=== PATIENT | female | born 1950 | race Caucasian/White ===

== ENCOUNTER 2023-10-22 06:41 | Day surgery (SDC) | payer MEDICARE, SELFPAY ==
--- NOTE | 2023-10-21 | HP_ITS ---
Date: 10/21/2023 HISTORY: The patient is a 72-year-old white female with complaints of declining vision out of her right eye. This has been slow in nature over the last year, described as constant and moderate in severity. She states having difficulty while driving at night time because of headlights creating glare and halos. She also has difficulty with road signs at a distance. Finally, she states having difficulty working on the computer and near activities as well. PAST OCULAR HISTORY: Status post cataract extraction with intraocular lens placement for the left eye. PAST MEDICAL HISTORY: Seasonal allergies, general arthritis and hypertension. SOCIAL HISTORY: Denies tobacco, alcohol or recreational drug abuse. SYSTEMIC MEDICATIONS: Include gabapentin, hydrochlorothiazide, calciferol, loratadine, biotin and Nadia D p.r.n. ALLERGIES TO MEDICATIONS: She denies. REVIEW OF SYSTEMS: No pertinent positives. PHYSICAL EXAM: GENERAL: In general, she is awake, alert and oriented x3, well developed, well nourished, in no acute distress. HEART: Regular rate and rhythm. LUNGS: Clear bilaterally. ABDOMEN: Soft, non-tender, non-distended. EXTREMITIES: No pitting edema. OPHTHALMIC EXAM: Revealed a visual acuity of 20/40 in the right and 20/30 in the left that glared to 20/200 bilaterally. Pupils motility, muscle balance and confrontational visual wills within normal limits bilaterally. Pressures are measured at 16 bilaterally. Slit lamp exam revealed blepharitis with a severe decrease in tear film bilaterally. Conjunctiva, cornea, anterior chamber and iris were within normal limits bilaterally. Lens status demonstrated 3+ nuclear sclerosis with vacuoles in the right eye, and a well centered posterior chamber intraocular lens in the left eye. FUNDUS EXAM: Revealed good view with good dilation bilaterally. Optic discs, macula, vessels, periphery and vitreous were within normal limits bilaterally. ASSESSMENT AND PLAN: Visually significant cataract, right eye. After the risks, benefits, and alternatives as well as expectations were delivered to the patient, she elected to go forward with cataract removal. She understands those risks to include but not limited to infection, bleeding, loss of vision or loss of the eye itself. Secondly, she understands that postoperatively she is likely to require spectacle correction for her best visual acuity. Finally, a complete ophthalmic exam was performed and there was not determined to be any other source of vision decline other than that of cataract. After understanding all risks as well as expectations, she elected to go forward with the procedure as listed above and will be doing so in the near future. DEQUAN
--- NOTE | 2023-10-22 | OP_ITS ---
OPERATION DATE: 10/22/2023 SURGEON: Can Sharma M.D. PREOPERATIVE DIAGNOSIS: Nuclear sclerotic cataract right eye. POSTOPERATIVE DIAGNOSIS: Nuclear sclerotic cataract right eye. PROCEDURE NAME: Cataract extraction with intraocular lens placement for the right eye. ANESTHESIA: Topical. ESTIMATED BLOOD LOSS: Zero. COMPLICATIONS: None. PROCEDURE: Patient brought to the operating room in supine position. After proper identification, the right eye was prepped and draped in a sterile ophthalmic fashion. A paracentesis was created at the 11 o'clock position. Approximately 1 mL of unpreserved Xylocaine was injected into the anterior chamber followed by Amvisc Plus. Using a 2.6 mm Keratome blade, a clear corneal incision was created at the 9 o'clock limbus. A cystotome was then used to begin a curvilinear capsulorrhexis that was continued for 360 degrees with the Utrata forceps. BSS on a 26 gauge cannula was injected beneath the anterior capsule to hydrodissect as well as hydrodelineate the lens. After ensuring mobility, phacoemulsification was performed in a [id number]-type fashion. After all nuclear material had been removed from the eye, IA was introduced and all residual cortical material was cleaned up. Additional Amvisc Plus was injected into the posterior bag and a lens model MX60, 21.5 diopters was then injected and dialed into position. After ensuring centration, IA was reintroduced into the anterior chamber and all residual Amvisc Plus was removed from the eye. BSS on a 30 gauge cannula was injected into the stroma of both the clear corneal incision as well as the paracentesis to hydrate the wounds. Additional BSS was injected into the anterior chamber to pressurize the eye at approximately 20 to 22 mmHg by finger tension. 0.1 mL of antibiotic was used to wash out the anterior chamber maintaining the pressures above. Weck-Izzy sponges were used to check the wounds to be watertight. One drop of Apraclonidine and one drop of prednisolone acetate were placed into the eye and a shield was placed over top. The patient was then sent to the postoperative area in satisfactory condition to follow up the following day for postoperative care. DEQUAN
[2023-10-22 06:59] VITALS: BP 127/67; PULSE 62; RESP 16; TEMP 36.2; O2SAT 96
[2023-10-22] MEDS: TROPICAMIDE 1% OP SOL 300 DROP/15 ML BOTTLE OP ×4 (07:15→07:50)
[2023-10-22] MEDS: CYCLOPENTOLATE HCL 1% OP SOL 40 DROP/2 ML BOTTLE OP ×4 (07:16→07:51)
[2023-10-22] MEDS: PHENYLEPHRINE HCL 2.5% OP SOL 40 DROP/2 ML BOTTLE OP ×4 (07:16→07:51)
[2023-10-22] MEDS: BESIFLOXACIN HCL 100 DROP DROPS.SUSP OP ×4 (07:16→07:52)
[2023-10-22] MEDS: DIAZEPAM 5 MG TABLET PO (07:23)
[2023-10-22 08:12] VITALS: BP 132/72; PULSE 57; RESP 18; O2SAT 98
[2023-10-22] MEDS: HYALURONATE SODIUM 16 MG/ML SYRINGE EYE-RIGHT (08:14)
[2023-10-22] MEDS: APRACLONIDINE HCL 100 DROP/5 ML BOTTLE OP (08:14)
[2023-10-22] MEDS: PREDNISOLONE ACETATE OP 1% SUSP 100 DROPS/5 ML 1 DROP OP (08:15)
[2023-10-22] MEDS: LIDOCAINE 2% JELLY 10 ML UR (08:15)
[2023-10-22] MEDS: BETADINE POVIDONE-IODINE 5% OP SOL 30 ML BOTTLE OP (08:15)
[2023-10-22] MEDS: PROPARACAINE HCL 0.5% 300 DROP/15 ML BOTTLE OP (08:16)
[2023-10-22] MEDS: TETRACAINE HCL 0.5% OP SOL 80 DROP/4 ML BOTTLE OP (08:16)
[2023-10-22] MEDS: CEFUROXIME SODIUM 750 MG, 0.9 % SODIUM CHLORIDE 16.3 ML OP (08:17)
[2023-10-22] MEDS: PHENYLEPHRINE/KETOROLAC 1-0.3% ML VIAL 4 ML IRR (08:17)
[2023-10-22] MEDS: LIDOCAINE HCL 1% PF 20 MG/2 ML VIAL 1 ML INJ (08:20)
[2023-10-22 08:24] VITALS: BP 133/77; PULSE 55; RESP 18; O2SAT 100
--- OUTSIDE RECORDS SUMMARY | 2023-11-04 02:20 | XMS_ITS | CCD ---
Author Name Unknown Address [address] [place] [address] Organization [facility] Care Team Providers Care 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 Name Role Phone Lily Denton Primary Care Provider SELF REFERRAL, MAMMOGRAPHY Referring Unava ilLILY Briceno Primary Care Unavailable ABDIRIZAK COLLADO Attending Unavailable ABDIRIZAK COLLADO Attending Unavailable DANNY YIP Referring Unavailable Ickes PA-C, Radha Palencia Attending Unav ailable Columbae VEL, Lily Mena Primary Care Unavailable Bertin CROWDER, Lily Mena Primary Care Unavailable Lily Denton CNP Referring Unavailable Ickes PA-C, Radha Palencia Attending Unav ailable Ickes PA-C, Radha Palencia Attending Unav ailable Rine FINANCIAL ASSISTANT, Lily Mena Primary Care Unavailable Allergies Allergy Classification Reported Allergen(s) Allergy Type Date of Onset Reaction(s) Facility (1 source) No Known Medication Allergies; Translations: [No Known Medication Allergies] Propensity to adverse reactions to drug (disorder) [facility] Repository Medications Current Medications Medication Drug Class(es) Dates Sig (Normalized) Sig (Original) alendronic acid 70 mg oral tablet (4 sources) Bisphosphonate alendronate (FOS AMAX) 70 MG tablet Take 70 mg by mouth every 7 days 0 Active calcium chloride 0.0014 meq/ml / potassium chloride 0.004 meq/ml / sodium chloride 0.103 meq/ml / sodium lactate 0.028 meq/ml injectable solution (1 source) Start: 09-30-20 19 lactated ringers infusion cholecalciferol 0.05 mg oral tablet (4 sources) Vitamin D take 1 tablet by mouth once daily Cholecalciferol (VITAMIN D3) 50 MCG (1999 UT) TABS Take 1 tablet by mouth daily 0 Active hydroCHLOROthiazide 12.5 mg oral capsule (4 sources) Thiazide Diuretic take 1 capsule by mouth once daily hydrochlorothiazide (MICROZIDE) 12.5 MG capsule Take 12.5 mg by mouth daily 0 Active Problems Problem Classification Problem Date Documented Date Episodic/Chronic Other screening for suspected conditions (not mental disorders or infectious disease) (5 sources) Patient encounter status; Translations: [Encounter for screening mammogram for malignant neoplasm of breast] Onset: 09-30-2019 Resolved: 10-30-2019 Episodic Residual codes; unclassified (1 source) Postmenopausal state; Translations: [Asymptomatic age-related postmenopausal state] Episodic Unclassified (4 sources) Patient encounter status; Translations: [Breast cancer screening by mammogram] Onset: 09-30-2019 Resolved: 10-30-2019 09-30-2019 Results Test Name Value Interpretation Reference Range Facil ity MRI Spine Lumbar w/o Contras ton 10-27-2023 MRI Spine Lumbar w/o Contrast EXAM: MRI Spine Lumbar w/o Contrast HISTORY: Other (please specify), Low back pain, symptoms persist with > 6wks conservative treatment COMPARISON: None. TECHNIQUE: MRI images obtained with multiple sequences. MRI of the lumbar spine without contrast. FINDINGS: The conus ends at T12-L1. No abnormal signal to terminal spinal cord. T11-T12: Intervertebral disc degeneration. No spinal canal stenosis. No neural foraminal stenosis. Mild posterior disc protrusion. T12-L1: Mild disc degeneration. Mild broad-based posterior disc bulge. No spinal canal stenosis or neural foraminal stenosis. L1-L2: Intervertebral moderate disc degeneration. Broad-based posterior disc bulge. No spinal canal stenosis. Moderate left neural foraminal narrowing. Right neural foramen is open. Mild facet joint arthropathy. Degenerative endplate edema. L2-L3: Intervertebral disc degeneration. Broad-based posterior disc bulge. No spinal canal stenosis. Left moderate neural foraminal narrowing. Right neural foramen is open. Mild facet joint arthropathy. Mild left lateral recess narrowing. L3-L4: Intervertebral disc degeneration. Broad-based posterior disc bulge. No spinal canal stenosis. Bilateral neural foramina are patent. Moderate bilateral facet joint arthropathy. L4-L5: Intervertebral moderate disc degeneration. Mild anterolisthesis of L4 on L5 measuring 0.3 cm. No spinal canal stenosis. No neural foraminal stenosis. Facet joints are moderately degenerated. Degenerative endplate edema. L5-S1: Intervertebral mild disc degeneration. Central posterior disc protrusion. No spinal canal stenosis. Bilateral neural foramina are patent. Mild facet joint arthropathy. Mild posterior pelvic ascites. 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 IMPRESSION: 1. No significant spinal canal stenosis. 2. Moderate neural foraminal narrowing at left L1-L2 and left L2-L3. 3. Mild anterolisthesis of L4 on L5 measuring 0.3 cm from facet joint arthropathy. 4. Other findings as described. Final Dictated by: Luke Naranjo MD Dictated DT/TM: 10/26/2023 11:17 pm Signed by: Luke Naranjo MD Signed (Electronic Signature): 10/26/2023 11:21 pm (If Report Is Signed, Electronically Signed in Other Vendor System) [facility] Neurosurgery Office/Clinic N anjelica 10-01-2023 Neurosurgery Office/Clinic Note Chief Complaint Back Consult History of Present Illness Patient is a pleasant 72-year-old female with a history of hypertension, hyperlipidemia, vitamin D deficiency, and osteopenia (DEXA 02/2022 T score -1.7), who presents to the outpatient neurosurgical clinic today accompanied by her , as a new patient, at the request of her treating primary care provider, Maria E Denton CNP, for consultation on behalf of complaints of chronic low back pain with radicular symptoms involving the right greater than left lower extremity. Patient reports she has struggled with components of axial lumbar pain for most of her adult life. She states symptoms have become increasingly problematic such that they have been most severe in the past 1 to 2 years. Patient currently describes midline and bilateral lumbosacral pain with radiation into the right greater than left gluteal region and right greater than left lower extremity in somewhat of an L5 distribution. She states symptoms are predictably aggravated with standing/walking. She reports intermittent associated numbness/paresthesias throughout the right greater than left lower extremity in the same distribution as her pain. Patient denies motor weakness in the lower extremities, bowel/bladder incontinence, or saddle paresthesias. She denies cervical or thoracic pain. She denies radicular pain or numbness/paresthesias into the upper extremities or chest wall/thorax. Patient denies motor weakness of the upper extremities, decreased dexterity, or chronic gait imbalance. Patient currently rates symptoms at 6-7/10 on a standard pain scale. She estimates that 50% of her pain is attributable to axial lumbar pain with remaining 50% being attributable to lower extremity symptoms. Patient states symptoms interrupt sleep and activity level/function. She states she is not forced to place her lower extremities in a dependent position to improve symptoms. She states that her ability to ambulate is not currently significantly limited. Patient reports she does lean on a grocery cart when shopping. Thus far, patient symptoms have been refractory to oral medication management including gabapentin. She has also participated in animal care taker. Patient denies physical therapy or injection modalities through pain management. PAST MEDICAL HISTORY: Hypertension Hyperlipidemia Osteopenia Vitamin D deficiency Seasonal allergic rhinitis PAST SURGICAL HISTORY: Right breast lumpectomy ORIF ankle ALLERGIES: No known drug allergies MEDICATIONS: See medication list SOCIAL HISTORY: Patient is . She has 2 grown children. She lives independently in [place]. Patient denies nicotine, alcohol, or recreational drugs. 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 She states no Drew of Workmen's Compensation or third-republican insurance claims based on today's office visit. FAMILY HISTORY: CAD: Maternal grandfather Cancer: Maternal grandmother with breast cancer Review of Systems Constitutional: [No fevers, chills, sweats] Eye: [No recent visual problems] ENT: [No ear pain, sore throat, nasal congestion] Respiratory: [No shortness of breath, cough] Vascular: [No edema, erythema, discoloration] Cardiovascular: [No Chest pain, palpitations, syncope] Neuro: [No headaches, dizziness] Gastrointestinal: [No nausea, vomiting, diarrhea] Genitourinary: [No hematuria] Endocrine: [no polydipsia, polyphagia] Hematology: [no easy bruising, no bleeding tendencies] Physical Exam Vitals & Measurements HR: 68 (Peripheral) BP: 126/72 SpO2: 95 HT: 167.5 cm WT: 95.6 kg WT: 95.6 kg (Dosing) BMI: 34.07 Additional Vitals BP Position/Location: Sitting, Right arm GENERAL PHYSICAL EXAM: GENERAL: well developed, well nourished, no distress HEAD: normocephalic, atraumatic EYES: anicteric, atraumatic MUCOUS MEMBRANES: Moist, no evidence of dehydration NECK: supple, full range of motion, no deformity noted; no cervical adenopathy; no carotid bruits; no tracheal deviation; no winging of the scapula; no drooping of the shoulder; no evidence of neurotension signs such as Lhermitte's or Spurling sign CHEST: clear CARDIAC: normal heart sounds no murmurs or extra sounds SHOULDER: Full range of motion on active and passive evaluation; no evidence of impingement or rotator cuff tendinopathy, negative empty can testing. PERIPHERAL NERVES: no tinel's signs carpal, cubital, or peroneal, no digital compression provocation SPINE: no evidence of scoliosis, rib hump, deformities or step-offs. No trigger points or myospasm VASCULAR: strong pulses with rapid capillary refill, no evidence of Raynaud's phenomenon, autonomic disturbance, venous insufficiency, or thoracic outlet syndrome. HIP: no Fabere's or Austin's sign LUMBAR: range of motion normal; no evidence of neurotension signs such as straight leg raise or reverse straight leg raise or femoral stretch test. PAIN BEHAVIOR: No evidence of Kristel's findings or overt pain behavior. NEUR (more content not included)... Normal [facility] Provider Letteron 10-01-2023 Provider Letter (Inserted Image. Ketty ble to display) Lily Denton CNP [address] [place] [id number] Re: Johnna Ba Date of Visit: 10/01/2023 Dear Lily Denton, Thank you for allowing me to contribute to the care of your patient, Johnna Ba. Attached is my office note and you will find my assessment and recommendations from our encounter today. Please do not hesitate to contact me with any questions or concerns. Sincerely, Radha Malagon PA-C [facility] [address] [address] The following document(s) were included in the letter: October 01, 2023 12:49:07 EST - (10/01/2023) Neurosurgery Office Visit Note Normal [facility] ALANNAH KIRILL DIGITAL SCREEN SELF REFERRAL W OR WO CAD BILATERALon 03-27-2023 ALANNAH KIRILL DIGITAL SCREEN SELF REFERRAL W OR WO CAD BILATERAL EXAMINATION: SCREENING DIGITAL BILATERAL MAMMOGRAM WITH TOMOSYNTHESIS, 03/27/2023 TECHNIQUE: Screening mammography of the bilateral breasts was performed with tomosynthesis. 2D standard and 3D tomosynthesis combination imaging performed through both breasts in the MLO and CC projection. Computer aided detection was utilized in the interpretation of this exam. COMPARISON: February 18, 2022 and October 26, 2020 HISTORY: Screening. FINDINGS: Breasts are composed of scattered fibroglandular density. There is no dominant mass, architectural distortion or concerning grouping of microcalcification in either breast. IMPRESSION: No mammographic evidence of malignancy BIRADS: BIRADS - CATEGORY 1 Negative. Normal interval follow-up is recommended in 12 months. OVERALL ASSESSMENT - NEGATIVE A letter of notification will be sent to the patient regarding the results. The [employer] recommends annual mammograms for women 40 years and older. Interpreted by: Kannan Iyer DO Signed by: Kannan Iyer DO 03/27/23 Final result Normal [facility] No mammographic evid ence of malignancy BIRADS: BIRADS - CATEGORY 1 Negative. Normal interval follow-up is recommended in 12 months. OVERALL ASSESSMENT - NEGATIVE A letter of notification will be sent to the patient regarding the results. [employer] recommends annual mammograms for women 40 years and older. [facility] RIS CONSOLIDATE D EXAMINATION: SCREENING DIGITAL BILATERAL MAMMOGRAM WITH TOMOSYNTHESIS, 03/27/2023 TECHNIQUE: Screening mammography of the bilateral breasts was performed with tomosynthesis. 2D standard and 3D tomosynthesis combination imaging performed through both breasts in the MLO and CC projection. Computer aided detection was utilized in the interpretation of this exam. COMPARISON: February 18, 2022 and October 26, 2020 HISTORY: Screening. FINDINGS: Breasts are composed of scattered fibroglandular density. There is no dominant mass, architectural distortion or concerning grouping of microcalcification in either breast. [facility] RIS CONSOLIDATE D Radiology Study observation (narrative) [facility] [email or web address] Work Phone: [facility] KIRILL DIGITAL SCREEN SELF REFERRAL W OR WO CAD BILATERALOrdered By: Kannan Iyer on 03-27-[address] [facility] [email or web address] Work Phone: [facility] KIRILL DIGITAL SCREEN BILA TERALon 02-18-2022 No mammographic evid ence of malignancy BIRADS: BIRADS - CATEGORY 1 Negative. Normal interval follow-up is recommended in 12 months. OVERALL ASSESSMENT - NEGATIVE A letter of notification will be sent to the patient regarding the results. [employer] recommends annual mammograms for women 40 years and older. [facility] RIS CONSOLIDATE D EXAMINATION: SCREENING DIGITAL BILATERAL MAMMOGRAM WITH TOMOSYNTHESIS, 02/18/2022 TECHNIQUE: Screening mammography was performed with tomosynthesis including MLO and CC views of the bilateral breasts. Computer aided detection was used for the interpretation of this exam. COMPARISON: October 26, 2020 and August 17, 2019 HISTORY: Screening. FINDINGS: Breasts are composed of scattered fibroglandular density. There is no dominant mass, architectural distortion or concerning grouping of microcalcification in either breast. [facility] CONSOLIDATE D Radiology Study observation (narrative) Carolyn [facility] Work Phone: [employer] SCREEN BILA TERALOrdered By: Kannan Iyer on 02-18-2022 [employer] Work Phone: [facility] SCREEN SELF REFERRAL W OR WO CAD BILATERALon 10-26-2020 No mammographic evid ence of malignancy. BI-RADS 1 BIRADS: BIRADS - CATEGORY 1 Negative, no evidence of malignancy. Normal interval follow-up is recommended in 12 months. OVERALL ASSESSMENT - NEGATIVE A letter of notification will be sent to the patient regarding the results. [employer] recommends annual mammograms for women 40 years and older. VIK[facility] Mittal EXAMINATION: SCREENI NG DIGITAL BILATERAL MAMMOGRAM WITH TOMOSYNTHESIS, 10/26/2020 TECHNIQUE: Screening mammography of the bilateral breasts was performed with tomosynthesis. 2D standard and 3D tomosynthesis combination imaging performed through both breasts in the MLO and CC projection. Computer aided detection was utilized in the interpretation of this exam. COMPARISON: 08/17/2019, 08/14/2018 HISTORY: Screening. FINDINGS: The breast tissue is composed of scattered fibroglandular tissue. There is no suspicious mass, suspicious microcalcification, or area of architectural distortion. Carolyn Isabel h- VIKTOR TERRY Kevin, [facility] Incoming R adiant Results From [employer] - 10/26/2020 1:04 PM EST EXAMINATION: SCREENING DIGITAL BILATERAL MAMMOGRAM WITH TOMOSYNTHESIS, 10/26/2020 TECHNIQUE: Screening mammography of the bilateral breasts was performed with tomosynthesis. 2D standard and 3D tomosynthesis combination imaging performed through both breasts in the MLO and CC projection. Computer aided detection was utilized in the interpretation of this exam. COMPARISON: 08/17/2019, 08/14/2018 HISTORY: Screening. FINDINGS: The breast tissue is composed of scattered fibroglandular tissue. There is no suspicious mass, suspicious microcalcification, or area of architectural distortion. IMPRESSION: No mammographic evidence of malignancy. BI-RADS 1 BIRADS: BIRADS - CATEGORY 1 Negative, no evidence of malignancy. Normal interval follow-up is recommended in 12 months. OVERALL ASSESSMENT - NEGATIVE A letter of notification will be sent to the patient regarding the results. [employer] recommends annual mammograms for women 40 years and older. [employer] [place] Colonoscopyon 09-30-2019 No dictation [facility] [employer] [place] DEXA BONE DENSITY AXIAL SKEL ETONon 08-17-2019 Osteopenia by WHO criteria. [employer] [place], [place] EXAMINATION: BONE DE NSITOMETRY 08/17/2019 10:41 am TECHNIQUE: A bone density dual x-ray absorptiometry (DEXA) scan was performed of the lumbar spine and left hip on a [employer] system. COMPARISON: 08/24/2013. HISTORY: ORDERING SYSTEM PROVIDED HISTORY: Asymptomatic age-related postmenopausal state FINDINGS: LUMBAR SPINE: The bone mineral density in the lumbar spine including the L1-L4 levels is measured at 1.201 g/cm2, which corresponds to a T-score of 0.2 and a Z-score of 0.8. This is within the normal range by WHO criteria. This indicates 5.2% increase from the previous study. On the previous study the L1-L4 BMD value was: 1.142 g/cm2 and the total T-score was: -0.3. LEFT HIP: The bone mineral density in the total hip is measured at 0.892 g/cm2 corresponding to a T-score of -0.9 and a Z-score of -0.2. This is within the normal range by WHO criteria. This indicates 4.7% decrease from the previous study. On the previous study the total BMD value was: 0.936 g/cm2 and the total T-score was: -0.6. The bone mineral density of the femoral neck is measured at 0.804 g/cm2 corresponding to a T-score of -1.7 and a Z-score of -0.6. This is within the osteopenia range by WHO criteria. FRAX 10 year probability of fracture: - major osteoporotic fracture: 9.7% - hip fracture: 1.5% [employer]- [place], [employer]KTOR Kevin, [facility] Incoming R adiant Results From [employer] - 08/17/2019 10:50 AM EDT EXAMINATION: BONE DENSITOMETRY 08/17/2019 10:41 am TECHNIQUE: A bone density dual x-ray absorptiometry (DEXA) scan was performed of the lumbar spine and left hip on a [employer] system. COMPARISON: 08/24/2013. HISTORY: ORDERING SYSTEM PROVIDED HISTORY: Asymptomatic age-related postmenopausal state FINDINGS: LUMBAR SPINE: The bone mineral density in the lumbar spine including the L1-L4 levels is measured at 1.201 g/cm2, which corresponds to a T-score of 0.2 and a Z-score of 0.8. This is within the normal range by WHO criteria. This indicates 5.2% increase from the previous study. On the previous study the L1-L4 BMD value was: 1.142 g/cm2 and the total T-score was: -0.3. LEFT HIP: The bone mineral density in the total hip is measured at 0.892 g/cm2 corresponding to a T-score of -0.9 and a Z-score of -0.2. This is within the normal range by WHO criteria. This indicates 4.7% decrease from the previous study. On the previous study the total BMD value was: 0.936 g/cm2 and the total T-score was: -0.6. The bone mineral density of the femoral neck is measured at 0.804 g/cm2 corresponding to a T-score of -1.7 and a Z-score of -0.6. This is within the osteopenia range by WHO criteria. FRAX 10 year probability of fracture: - major osteoporotic fracture: 9.7% - hip fracture: 1.5% IMPRESSION: Osteopenia by WHO criteria. [facility] ALANNAH DIGITAL SCREEN W OR WO C AD BILATERALon 08-17-2019 No mammographic evid ence of malignancy. BIRADS: BIRADS - CATEGORY 1 Negative, no evidence of malignancy. Normal interval follow-up is recommended in 12 months. OVERALL ASSESSMENT - NEGATIVE A letter of notification will be sent to the patient regarding the results. The [place] recommends annual mammograms for women 40 years and older. [place], [place] EXAMINATION: BILATER AL DIGITAL SCREENING MAMMOGRAM WITH TOMOSYNTHESIS 08/17/2019 TECHNIQUE: CC and MLO views of the left and right breasts were obtained. Tomosynthesis imaging was performed. Computer aided detection was utilized in the interpretation of this exam. COMPARISON: 08/14/2018, 08/24/2013 HISTORY: Screening. Family history of breast cancer. FINDINGS: There are scattered areas of fibroglandular density. There is no new dominant mass, suspicious microcalcification, or area of architectural distortion. [place], [place] Kevin, [facility] Incoming R adiant Results From [employer] - 08/17/2019 11:17 AM EDT EXAMINATION: BILATERAL DIGITAL SCREENING MAMMOGRAM WITH TOMOSYNTHESIS 08/17/2019 TECHNIQUE: CC and MLO views of the left and right breasts were obtained. Tomosynthesis imaging was performed. Computer aided detection was utilized in the interpretation of this exam. COMPARISON: 08/14/2018, 08/24/2013 HISTORY: Screening. Family history of breast cancer. FINDINGS: There are scattered areas of fibroglandular density. There is no new dominant mass, suspicious microcalcification, or area of architectural distortion. IMPRESSION: No mammographic evidence of malignancy. BIRADS: BIRADS - CATEGORY 1 Negative, no evidence of malignancy. Normal interval follow-up is recommended in 12 months. OVERALL ASSESSMENT - NEGATIVE A letter of notification will be sent to the patient regarding the results. [employer] [place] recommends annual mammograms for women 40 years and older. [place], [place] Vital Signs Date Time Vital Sign Value Performing Clinician Eliu watts 09-30-2019 11:20-0500 Body Temperature 97.59 [degF] [facility] 09-30-2019 11:20-0500 BP Diastolic 70 mm[Hg] [place], [place] 09-30-2019 11:20-0500 BP Systolic 121 mm[Hg] [facility] [place] , [place] 09-30-2019 11:20-0500 Pulse (Heart Rate) 80 /min [facility], [place] 09-30-2019 11:20-0500 Pulse Oximetry 98 % [facility] , [place] 09-30-2019 11:20-0500 Respiratory Rate 18 /min Sarahi Leon [facility], VIKTOR 09-30-2019 08:26-0500 BMI (Body Mass Index) 34.95 kg/m2 Sarahi Leon [facility], [place] 09-30-2019 08:26-0500 Body weight 95.25 kg Sarahi Renae [place], [place] 09-30-2019 08:26-0500 Height 165.1 cm [facility] [place] Encounters Encounter Date Encounter Type Care Provider Facility Start: 10-26-2023 End: 10-27-2023 ambulatory Radha Malagon PA-C Facility:[facility] Start: 10-23-2023 End: 10-23-2023 ambulatory ABDIRIZAK COLLADO Not Available Start: 10-07-2023 End: 10-07-2023 ambulatory ABDIRIZAK COLLADO Not Available Start: 10-01-2023 End: 10-02-2023 ambulatory [facility] Denton CNP [facility] Start: 03-27-2023 End: 03-30-2023 ambulatory MAMMOGRAPHY SELF REFERRAL [facility] Start: 03-27-2023 End: 03-29-2023 Subsequent hospital visit by physician [facility]amm[facility] Mammography Comment on above: Breast cancer screen ing by mammogram Start: 02-18-2022 End: 02-20-2022 Subsequent hospital visit by physician [facility]amm[facility] Mammography Comment on above: Screening mammogram for high-risk patient Start: 10-26-2020 End: 10-28-2020 Subsequent hospital visit by physician [facility] Mammography [facility] At [facility] Mammography Comment on above: Breast cancer screen ing by mammogram Start: 09-30-2019 End: 09-30-2019 Subsequent hospital visit by physician Sarahi Renae Work Phone: [facility] Start: 08-17-2019 End: 08-19-2019 Subsequent hospital visit by physician [facility] [place] Mamm[facility] Comment on above: Breast cancer screen ing by mammogram Asymptomatic age-rel ated postmenopausal state Procedures Date Procedure Procedure Detail Performing Clinician Start: 03-27-2023 Screening mammograph y bi 2-view breast inc cad Lily L Rine Work Phone: Start: 02-18-2022 Screening mammograph y bi 2-view breast inc cad Lily L Rine Work Phone: Start: 10-26-2020 Screening mammograph y bi 2-view breast inc cad Lily L Rine Work Phone: Start: 09-30-2019 COLONOSCOPY PROCEDURE B ettina I Jennyleroy Work Phone: Start: 09-30-2019 Colonoscopy [facility] Start: 08-17-2019 Screening digital br east tomosynthesis bi Lily L Rine Work Phone: Start: 08-17-2019 Dxa bone density gabino dy 1/> sites axial skel Lily L Rine Work Phone: Plan of Treatment Date Care Activity Detail Author Start: 09-30-2029 Colon cancer screen colonoscopy Colon cancer screen colonoscopy [place] Start: 03-27-2025 Screening for malignant neoplasm of breast [facility] Start: 02-19-2024 Screening for malignant neoplasm of breast Breast cancer screen [facility] Start: 11-03-2023 ambulatory Ambulatory Facility:Neurosurgic a l [facility] Start: 06-16-2023 Influenza vaccination Flu vaccine (Season Ended) [facility] Start: 10-26-2022 Screening for malignant neoplasm of breast Breast cancer screen [facility] [place] Start: 09-30-2022 Screening for malignant neoplasm of colon [facility] Start: 02-18-2022 Annual Wellness Visit (AWV) Annual Wellness Visit (AWV) [facility] Start: 08-17-2021 Breast cancer screen Breast cancer screen [facility] [place] Start: 07-30-2021 COVID-19 Vaccine (3 - Booster for Moderna series) COVID-19 Vaccine (3 - Booster for Moderna series) [facility] Start: 04-24-2021 COVID-19 Vaccine (3 - Booster for Moderna series) COVID-19 Vaccine (3 - Booster for Moderna series) [facility] Start: 07-17-2020 Influenza vaccination Flu vaccine (#1) [place] Start: 07-01-2020 Pneumococcal 65+ years Vaccine (2 - PPSV23 if available, else PCV20) Pneumococcal 65+ years Vaccine (2 - PPSV23 if available, else PCV20) [facility] Start: 07-01-2020 Pneumococcal 65+ years Vaccine (2 of 2 - PPSV23) Pneumococcal 65+ years Vaccine (2 of 2 - PPSV23) [facility] Start: 08-26-2019 End: 08-26-2019 Hospital Encounter [facility] Comment on above: COLORECTAL CANCER SC REENING, NOT HIGH RISK Start: 07-17-2019 Influenza vaccination Flu vaccine (# 1) [place] Start: 05-08-2019 Annual Wellness Visi t (AWV) Annual Wellness Visit (AWV) [place] Start: 11-20-2016 Creatinine measurement Creatinine mo nitoring [facility] Start: 11-20-2016 Creatinine monitoring Creatinine mon itoring [place] Start: 11-20-2016 Potassium monitoring Potassium monit oring [facility] Start: 2013 Pneumococcal 65+ yea rs Vaccine (1 of 1 - PPSV23) Pneumococcal 65+ years Vaccine (1 of 1 - PPSV23) [place] Start: 2013 Pneumococcal 65+ yea rs Vaccine (1 of 2 - PCV13) Pneumococcal 65+ years Vaccine (1 of 2 - PCV13) [place] Start: 1998 Colon cancer screen colonoscopy Colon cancer screen colonoscopy [place] Start: 1998 Shingles Vaccine (1 of 2) Shingles Vaccine (1 of 2) [place] Start: 1993 Screening for malign ant neoplasm of colon [facility] Start: 1988 Diabetes screen Diabetes screen [place], [place] Start: 1988 Lipid panel [facility] Start: 1988 Lipid screen Lipid screen [place], [place] Start: 1967 DTaP/Tdap/Td vaccine (1 - Tdap) DTaP/Tdap/Td vaccine (1 - Tdap) [facility] Start: 1966 Hepatitis C screening Hepatitis C verna [facility] Start: 1960 Depression Screen Depression Screen [facility] Start: 1959 DTaP/Tdap/Td vaccine (1 - Tdap) DTaP/Tdap/Td vaccine (1 - Tdap) [place] Start: 1948 Hepatitis C screen Hepatitis C scree n [place] Start: 1948 Hepatitis C [facility] End: 09-30-2019 Colonoscopy Colonoscopy Endoscopy Routine One Time for 1 Occurrences starting 09/30/2019 until 09/30/2019, 1 completed [place] Comment on above: One Time for 1 Occur rences starting 09/30/2019 until 09/30/2019, 1 completed Initiate Oxygen Ther apy Protocol Initiate Oxygen Therapy Protocol Respiratory Care Routine Daily until discontinued starting 09/30/2019 [place] Comment on above: Daily until disconti nued starting 09/30/2019 Phase I & II - meter ed glucose Phase I & II - metered glucose Point of Care Testing Routine As Needed until discontinued starting 09/30/2019 [place] Comment on above: As Needed until disc ontinued starting 09/30/2019 Surgical Pathology Surgical Path ology Lab Routine ONE TIME for 1 Occurrences starting 09/30/2019 [place] Comment on above: ONE TIME for 1 Occur rences starting 09/30/2019 Payers Date Payer Category Payer Medicare [id number] 2021 Private Health Insurance 2015 Medicare AETNA MEDICARE A ETNA MEDICARE-ADVANTAGE PPO xxxxxxxx 2015-Present [address] [place] [phone] Medicare [id number] 2015 Medicare AETNA MEDICARE A ETNA MEDICARE-ADVANTAGE PPO [id number] 2015-Present [address] [place] [address] Medicare [id number] 1948 Unknown [id number] 1948 Unknown [id number] 1948 Unknown [id number] 1948 Unknown [id number] 1948 Unknown [id number] 1948 Unknown [id number] Social History Date Type Detail Facility Start: 11-20-2015 End: 03-27-2023 Tobacco smoking status NHIS Never smoker [place] Start: 11-20-2015 Alcohol intake No [place], [place] Start: 1950 Sex Assigned At Not on file [place] Start: 09-30-2019 End: 03-27-2023 Alcohol intake Current non-drinker of alcohol (finding) [place] Start: 09-30-2019 End: 03-27-2023 Tobacco use and exposure [facility] [place] [place] Exposure to SARS-CoV -2 (event) Not sure [place] Clinical Note 10-27-2023 Note Date & Type Note Facility 10-27-2023 Note Procedure: Neutral, flexion, and extension lateral views of the lumbar spine. Clinical information: 72-year-old female with lumbar pain. Comparison: Lumbar spine MRI 10/26/2023. Findings: Bones: Mild retrolisthesis at T12-L1 and L1-2 and anterolisthesis at L4-5. No dynamic subluxation. Intervertebral discs: Grossly moderate multilevel degenerative disc disease (DDD). Facet joints: Grossly moderate to severe diffuse lumbar osteoarthrosis (OA). Soft tissues: Mild aortoiliac atherosclerotic calcifications. IMPRESSION: Advanced multilevel spondylosis. No lumbar instability. Final Dictated by: Darrin Ferguson MD Dictated DT/TM: 10/27/2023 8:17 am Signed by: Darrin Ferguson MD Signed (Electronic Signature): 10/27/2023 8:33 am (If Report Is Signed, Electronically Signed in Other Vendor System) [facility] Evaluation note Note Date & Type Note Facility Evaluation note Diagnosis Screening mammogram for high-risk patient documented in this encounter [employer] Phone: Evaluation note Note Date & Type Note Facility Evaluation note Diagnosis Breast cancer screening by mammogram documented in this encounter NATHANIEL JASWANT [employer] Phone: Reason for Referral Status Reason Specialty Diagnoses / Procedures Referred By Contact Referred To Contact Pending Review Radiology Diagnoses Breast cancer screening by mammogram Procedures ALANNAH DIGITAL SCREEN W OR WO CAD BILATERAL Rine, Lily L [address] [place], [place] [id number] Status Reason Specialty Diagnoses / Procedures Re ferred By Contact Referred To Contact Open Radiology Diagnoses Asymptomatic age-related postmenopausal state Procedures DEXA BONE DENSITY AXIAL SKELETON Bertin Lily L [address] [place] [phone] Specialty Diagnoses / Procedures Referred By Contac t Referred To Contact Radiology Diagnoses Breast cancer screening by mammogram Procedures ALANNAH KIRILL DIGITAL SCREEN SELF REFERRAL W OR WO CAD BILATERAL Rine, Lily L [address] [place] [phone] Referral ID Status Reason Start Date Expiration Date Visits Re quested Visits Authorized [id number] Closed 03/27/2023 03/26/2024 1 1 Assessments Diagnosis Breast cancer screening by mammogram Diagnosis Asymptomatic age-related postmenopausal state Diagnosis Breast cancer screening by mammogram Advance Directives No Advanced Directives Records FoundDocuments on File Type Date Recorded 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 Mild activities such as walking will help you pass the air. You may resume your regular diet. You will receive a letter or phone call with your test results in 2 weeks. If you have not receiveda letter or a phone call in 2 weeks please call the office for your results. CALL THE DOCTOR IF YOU HAVE: Chest pain or trouble breathing. Bleeding from your rectum, vomiting or spitting up of blood that is more than a few streaks or red or black stools A fever above 101F or if you have chills Pain that is worse or different than any pain you had before the procedure Nausea or vomiting that lasts for more than 2 hours. If symptoms are to severe call 911 or go to the nearest Emergency Room. documented in this encounter History of Present Illness * Kitty Estrada RN - 09/30/2019 10:52 AM EST Report given to Aundrea KINGSLEY documented in this encounter Summary Purpose Family History No Family History Records FoundNo Family History Records FoundNo Family History Records Found Additional Source Comments Reason for Visit (unrecogniz ed section and content) Status Reason Specialty Diagnoses / Procedures Referre d By Contact Referred To Contact Open Radiology Diagnoses Encounter for screening mammogram for malignant neoplasm of breast Procedures HC MAMMO SCREENING INCL CAD IF PERF Lily Denton [address] [place] [address] [facility] [address] [place] [address] Status Reason Specialty Diagnoses / Procedures Referre d By Contact Referred To Contact Open Radiology Diagnoses Asymptomatic menopausal state Procedures HC DEXA AXIAL SKELETON Rine, Lily L [address] [place] [address] [address] [place] [address] Status Reason Specialty Diagnoses / Procedures Referre d By Contact Referred To Contact Diagnoses Encounter for screening for malignant neoplasm of colon SCREENING Procedures FL COLON CA SCRN NOT HI RSK IND COLORECTAL CANCER SCREENING, NOT HIGH [place]ISK [place] [address] [place] [address] [facility] Status Reason Specialty Diagnoses / Procedures Referre d By Contact Referred To Contact Closed Radiology Diagnoses Breast cancer screening by mammogram Procedures ALANNAH KIRILL DIGITAL SCREEN SELF REFERRAL W OR WO CAD BILATERAL Rine, Lily L [address] [place] [phone] Specialty Diagnoses / Procedures Referred By Contac t Referred To Contact Radiology Diagnoses Screening mammogram for high-risk patient Procedures ALANNAH KIRILL DIGITAL SCREEN BILATERAL ALANNAH DIGITAL SCREEN W OR WO CAD BILATERAL Rine, Lily L [address] [place] [phone] Referral ID Status Reason Start Date Expiration Date V isits Requested Visits Authorized [id number] Pending Review 08/19/2021 08/19/2022 1 1 Specialty Diagnoses / Procedures Referred By Contac t Referred To Contact Radiology Diagnoses Breast cancer screening by mammogram Procedures ALANNAH KIRILL DIGITAL SCREEN SELF REFERRAL W OR WO CAD BILATERAL Rine, Lily L [address] [place] [phone] Referral ID Status Reason Start Date Expiration Date Visits Re quested Visits Authorized [id number] Closed 03/27/2023 03/26/2024 1 1 Care Teams (unrecognized sec tion and content) 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 Relationship Specialty Start Date End Date Columbae Lily L [address] [place], [place] [phone] PCP - General 07/13/19 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 This clinical summary was aggregated from multiple sources. Caution should be exercised in using it in the provision of clinical care. This summary normalizes information from multiple sources, and as a consequence, information in this document may materially change the coding, format and clinical context of patient data. In addition, data may be omitted in some cases. CLINICAL DECISIONS SHOULD BE BASED ON THE PRIMARY CLINICAL RECORDS. [employer] provides no warranty or guarantee of the accuracy or completeness of information in this document.
== END 2023-10-22 08:36 | disposition home or self-care (01) ==
LOC: SURGOUT 06:45
PROVIDERS: Visit Provider Ophthalmology
PROC: (CPT 66984; principal; 2023-10-22 08:00)
DX: H25.11 Age-related nuclear cataract, right eye (principal)
CPT/HCPCS: 66984; V2630

== ENCOUNTER 2023-10-22 08:56 | Outpatient (OUT) | payer SELFPAY | END 2023-10-22 08:57 | disposition home or self-care (01) | LOC: PST 08:56 | PROVIDERS: Visit Provider Ophthalmology | DX: Z01.818 Encounter for other preprocedural examination (principal); H25.811 Combined forms of age-related cataract, right eye ==